=== PATIENT | male | born 1930 | race Caucasian/White ===

== ENCOUNTER 2016-10-13 19:32 | Inpatient (IN) ==
[2016-10-13] MEDS ORDERED: Naloxone 0.4 MG/ML INJ IVP PRN (22:26)
[2016-10-13] MEDS: *HR* HYDROmorphone (PF) 1 MG/ML SYRINGE IVP PRN (22:44)
--- NOTE | 2016-10-13 22:50 | Internal Med History&Physical ---
Date of Encounter: 10/13/16 Time of Encounter: 22:44 Assessment and Plan (1) Closed left hip fracture Current visit: Yes Status: Acute Patient fell at home and reported left hip pain. Xray revealed minimally displaced left femoral intertrochanteric fracture. Orthopedic surgery (Dr. Gregory) was consulted, plan for surgery tomorrow. EKG for pre-op clearance NPO after midnight [place] and IV dilaudid PRN for pain control narcan prn for respiratory depression. Qualifiers: Encounter type: initial encounter Qualified Code(s): S72.002A - Fracture of unspecified part of neck of left femur, initial encounter for closed fracture (2) Hypertension Current visit: Yes Status: Acute Patient takes clonidine, furosemide, losartan, amlodipine at home. Hold oral medications as patient is NPO for surgery. Hydralazine 10mg q6hr prn for SBP > 180 or DBP >100. Restart home meds after surgery. Qualifiers: Hypertension type: essential hypertension Qualified Code(s): I10 - Essential (primary) hypertension (3) CAD (coronary artery disease) Current visit: Yes Status: Acute Patient had cardiac cath in 2013 which showed minimal atherosclerotic disease with 30% lesion in the LAD, 20% lesion in the Circ, 20% RCA and EF of 60%. Will get EKG for pre-op clearance. Qualifiers: Coronary Disease-Associated Artery/Lesion type: [place] artery [place] vs. transplanted heart: [place] heart Associated angina: without angina Qualified Code(s): I25.10 - Atherosclerotic heart disease of [place] coronary artery without angina pectoris (4) Type 2 diabetes mellitus Current visit: Yes Status: Acute Patient with type 2 diabetes, not on any medications at home. Check blood sugars Q6hrs while NPO Sliding scale correction dose Q6hrs while NPO hypoglycemic protocol. Qualifiers: Diabetes mellitus complication status: without complication Diabetes mellitus alf insulin use: without alf use Qualified Code(s): E11.9 - Type 2 diabetes mellitus without complications (5) DVT prophylaxis Current visit: Yes Status: Acute Calf sequential compression devices. start pharmacologic prophylaxis after surgery tomorrow. Internal Medicine - H&P: HPI Chief complaint: hip pain Admitted From: Emergency Dept Plans for Post Hospital Care: Transfer [facility] Facility History of present illness: Mr. Johnson is a 86 year old male with hypertension, type 2 diabetes, hyperlipidemia, remote history of throat cancer s/p radiation, recent pelvic fracture who was transferred from [facility] after suffering a fall at home. He reports he was using his walker and walking around his car when the walker got caught on something and he lost his balance and fell, landing on his left hip. He denies hitting his head or losing consciousness. Evaluation in the [facility] ED included an xray of the left hip which showed a minimally displaced left femoral intertrochanteric fracture. On exam, patient is alert and oriented, in no distress. Heart has regular rate and rhythm and lungs are clear to auscultation bilaterally. Left hip is tender to palpations and patient reports pain with any movement or manipulation. Peripheral pulses are intact, and he has normal capillary refill and sensation. Past Med Surg Social Fam HX - Past Medical History Medical history: cancer (remote throat cancer s/p radiation), coronary artery disease, diabetes, glaucoma, hyperlipidemia, hypertension - Past Surgical History Surgical History: hip replacement (right) - Social History Smoking Status: Never smoker Smokeless Tobacco Status: No Alcohol use: none Drug use: none - Family History Father History Unknown: Yes Adopted: [place]: Flavio Johnson Family Member Ethnicity: Non- Living Status: Age at : 79 Cause of : Cancer Hx Family Respiratory Disorders: Yes Hx Family Cancer: Yes (prostate cancer) Hx Family GI Disorders: No Hx Family Genitourinary Disorders: No Hx Family Endocrine Disorder: No Hx Family Musculoskeletal Disorders: No Hx Family Neuromuscular Disorders: No Hx Family Neurologic Disorders: No Hx Family HEENT Disorders: No Hx Family Autoimmune Disorders: No Hx Family Reproductive Disorders: No Hx Family Psychosocial Disorders: No Hx Family Medical Disorders: No Mother Living Status: Age at : 75 Cause of : CHF Hx Family Cardiac Disorders: Yes Brother Living Status: Hx Family Cancer: Yes Sister Living Status: Hx Family Cancer: Yes Internal Medicine - H&P: Meds Allergies Penicillins Allergy (Verified 10/13/16 22:31) Itching pregabalin [From Lyrica] Allergy (Verified 10/13/16 22:31) Swelling of Lip/Tongue/Throat All Systems PM: A 10-system review of systems was performed and is negative for pertinent findings except as documented above in the HPI. - Constitutional Constitutional: no chills, no fever(s), no night sweats - EENT Eyes: no change in vision, no discharge, no pain, no photophobia Ears: no ear discharge, no ear pain, no tinnitus Nose, mouth and throat: no dysphagia, no nasal discharge, no neck pain, no sore throat - Cardiovascular Cardiovascular ROS IM: no chest pain, no diaphoresis, no dyspnea, no lightheadedness, no palpitations, no syncope - Respiratory Respiratory: no cough, no dyspnea, no wheezing, no excessive phlegm production - Gastrointestinal Gastrointestinal: no abdominal pain, no diarrhea, no hematemesis, no hematochezia, no melena, no nausea, no vomiting - Musculoskeletal Musculoskeletal ROS IM: arthralgias (left hip pain), back pain, joint swelling ( left hip), limited range of motion (left hip), no numbness, no tingling - Integumentary Integumentary IM: no rash, no unusual bruising - Neurological Neurological ROS: no confusion, no convulsions, no focal weakness, no numbness, no tingling, no tremor(s) - Hematologic/Lymphatic Hematologic/Lymphatic: no easy bruising - Constitutional Vitals: Temp Pulse Resp BP Pulse Ox 97.8 F 95 18 173/86 98 10/13/16 21:32 10/13/16 21:32 10/13/16 21:32 10/13/16 21:32 10/13/16 21:32 General appearance: Present: A&O X 3, pleasant, no acute distress - Head Head exam: Present: atraumatic, normocephalic - Eye Eye exam: Present: PERRL, conjuntiva pink, sclera anicteric Pupils: Present: PERRL - Neck Neck exam general surgery: Present: supple, trachea midline. Absent: lymphadenopathy - Respiratory Respiratory exam: Present: CTAB. Absent: accessory muscle use, rales, rhonchi, wheezes - Cardiovascular Cardiovascular exam: Present: RRR, +S1, +S2. Absent: diastolic murmur, gallop, rubs, systolic murmur - GI/Abdominal GI/Abdominal exam: Present: normal bowel sounds, soft, no peritoneal signs. Absent: distended, tenderness - Extremities Exam Extremities exam: Present: pedal edema (left ), tenderness (left hip), warm, radial pulses palpable and symetrical. Absent: calf tenderness, cyanotic - Neurological Exam Neurological exam: Present: CN II-XII intact, oriented X3, no focal deficits. Absent: facial droop, speech deficit - Skin Skin exam: Present: dry, intact Internal Med - H&P Results - Diagnostic Studies Other Images Additional comments: Left hip xray from [facility]: Minimally displaced left femoral intertrochanteric fracture. Osteopenia.
[2016-10-13] MEDS ORDERED: *HR* Dextrose 50 % in Water (Syg) 50 ML SYRINGE IVP PRN (22:52)
[2016-10-13] MEDS ORDERED: D5% in Water 1,000 ML IVC PRN (22:52)
[2016-10-13] MEDS ORDERED: Dextrose Gel 15 GM PO PRN ×2 (22:52)
[2016-10-13] MEDS: 0.9 % Sodium Chloride 1,000 ML IVC SCH (23:05)
[2016-10-14] MEDS: Insulin LISPRO 300 UNITS/3 ML VIAL SQ SCH ×4 (01:18→19:16)
[2016-10-14] MEDS: *HR* HYDROmorphone (PF) 1 MG/ML SYRINGE IVP PRN ×6 (03:07→19:04)
[2016-10-14 06:01] LABS: Basophils % 0.3 %; Eosinophils % 0.5 %; Hematocrit 38.3 % (37.5-50.1); Hemoglobin 12.7 g/dL (12.9-16.9); Immature Granulocytes % 0.5 % (0-4); Lymphocytes # 1.6 K/mcL (0.6-4.6); Lymphocytes % 21.2 %; Mean Corpuscular HGB Conc 33.2 g/dL (31.6-35.5); Mean Corpuscular Volume 87.4 fL (83.0-100.0); Monocytes # 0.7 K/mcL (0.0-1.3); Monocytes % 9.5 %; Neutrophils # 5.1 K/mcL (1.6-8.9); Platelet Count 165 K/mcL (140-400); Red Blood Count 4.38 M/mcL (4.19-5.50); Red Cell Distribution Width 13.2 % (11.5-14.5)
[2016-10-14 06:12] LABS: BUN/Creatinine Ratio 18 (6-26); Blood Urea Nitrogen 18 mg/dL (8-26); Calcium 8.5 mg/dL (8.6-10.8); Carbon Dioxide 27 mEq/L (19-29); Chloride 107 mEq/L (98-109); Glucose 145 mg/dL (70-99); Osmolality,Calculated 292 (280-300); Potassium 4.9 mEq/L (3.5-4.5); Sodium 139 mEq/L (136-145); eGFR For African Americans > 60 (> 60); eGFR For Non-African Americans > 60 (> 60)
[2016-10-14] MEDS: *HR* HYDROcodone/Acet 5/325 mg TABLET PO PRN (10:29)
[2016-10-14] MEDS: 0.9 % Sodium Chloride 1,000 ML IVC SCH (12:36)
--- NOTE | 2016-10-14 14:17 | Internal Med Progress Note ---
Date of Encounter: 10/14/16 Time of Encounter: 14:15 - Assessment and plan (1) Closed left hip fracture Current Visit: Yes Status: Acute Assessment and plan: Status post mechanical fall. Orthopedic surgery consult appreciated, plan for intramedullary nailing today. Pain control with when necessary IV morphine. Keep nothing by mouth for surgery. EKG shows normal sinus rhythm with Q waves in inferior leads, possibly old ID. Patient is cleared for surgery with mild to moderate perioperative risk. Physical therapy evaluation after surgery. Qualifiers: Encounter type: initial encounter Qualified Code(s): S72.002A - Fracture of unspecified part of neck of left femur, initial encounter for closed fracture (2) Hypertension Current Visit: Yes Status: Chronic Assessment and plan: Blood pressure noted to be slightly elevated, likely due to underlying pain. Patient did not receive oral antihypertensives due to being nothing by mouth. Will use when necessary IV hydralazine and labetalol for blood pressure control. Qualifiers: Hypertension type: essential hypertension Qualified Code(s): I10 - Essential (primary) hypertension (3) CAD (coronary artery disease) Current Visit: Yes Status: Chronic Qualifiers: Coronary Disease-Associated Artery/Lesion type: [place] artery [place] vs. transplanted heart: [place] heart Associated angina: without angina Qualified Code(s): I25.10 - Atherosclerotic heart disease of [place] coronary artery without angina pectoris (4) Type 2 diabetes mellitus Current Visit: Yes Status: Chronic Assessment and plan: Borderline diabetic per family. Check hemoglobin A1c. Continue Accu-Chek blood glucose monitoring with low-dose sliding scale insulin as needed. Qualifiers: Diabetes mellitus complication status: without complication Diabetes mellitus equipment operator intermodal yard insulin use: without equipment operator intermodal yard use Qualified Code(s): E11.9 - Type 2 diabetes mellitus without complications - Subjective Interval history: Reports left hip focal pain, restricted range of motion; upset about not having hip surgery yet; - Constitutional Vitals: Temp Pulse Resp BP Pulse Ox 97.9 F 82 16 192/83 97 10/14/16 12:06 10/14/16 12:06 10/14/16 12:06 10/14/16 12:06 10/14/16 12:06 General appearance: Present: mild distress, A&O X 3, answers questions appropriately - ENT Additional comments: very hard of hearing - Respiratory Respiratory exam: Present: CTAB. Absent: accessory muscle use, rales, rhonchi, wheezes - Cardiovascular Cardiovascular exam: Present: RRR, +S1, +S2. Absent: diastolic murmur, gallop, rubs, systolic murmur - GI/Abdominal GI/Abdominal exam: Present: normal bowel sounds, soft, no peritoneal signs. Absent: distended, tenderness - Extremities Exam Extremities exam: Present: full ROM (left hip restricted ROM, in external rotation and abduction), pedal edema (2+ pitting pedal edema B/L), warm, radial pulses palpable and symetrical. Absent: calf tenderness, cyanotic Internal Medicine: Result - Labs CBC & Chem 7: 10/14/16 05:46 10/14/16 05:46 Labs: Short CBC 10/14/16 Range/Units 05:46 WBC 7.5 (4.3-11.1) K/mcL Hgb 12.7 L (12.9-16.9) g/dL Hct 38.3 (37.5-50.1) % Plt Count 165 (140-400) K/mcL Neutrophils # 5.1 (1.6-8.9) K/mcL BMP 10/14/16 05:46 Sodium 139 Potassium 4.9 H Chloride 107 Carbon Dioxide 27 BUN 18 Creatinine 1.02 Glucose 145 H Calcium 8.5 L Consult Discharge Plan - Plan Referrals: Zbigniew Ramirez MD [Primary Care Provider] -
[2016-10-14 15:39] LABS: Hemoglobin A1C 7.1 %
--- NOTE | 2016-10-14 15:42 | Orthopedic Consult Note ---
Date of Encounter: 10/14/16 Time of Encounter: 15:39 Assessment and Plan (1) Closed intertrochanteric fracture of left hip Current Visit: Yes Status: Acute Left hip nondisplaced intertrochanteric fracture Plan: The patient was seen and evaluated today. He is being planned by the medical service. He is scheduled for a left hip intramedullary nailing today. The risks, benefits and alternatives were discussed the patient and his . The patient is aware of the fact that he will require rehabilitation services afterwards. Qualifiers: Encounter type: initial encounter Qualified Code(s): S72.142A - Displaced intertrochanteric fracture of left femur, initial encounter for closed fracture History of Present Illness Chief complaint: Left hip pain HPI: Mr. Johnson is a 86 year old male status post a fall last night. Patient was seen at [facility]'s ER where he was diagnosed with a left fracture. The patient requested transfer to [place] for surgical management. Patient's form patient mine I fixed his right hip several years ago. He also had a recent pubic rami fracture. He normally uses a motorized scooter and a walker however has screw better stead. He was outside with his walker and was on an even surface, lost his balance and fell down onto his left side. The patient denies dizziness prior to fall and no loss of consciousness after the fall. He reports no shortness of breath and no chest pain. Past Med Surg Social Fam HX - Past Medical History Medical history: cancer (remote throat cancer s/p radiation), coronary artery disease, diabetes, glaucoma, hyperlipidemia, hypertension - Past Surgical History Surgical History: hip replacement (right hip pinning) - Social History Smoking Status: Never smoker Smokeless Tobacco Status: No Alcohol use: none Drug use: none - Family History Father History Unknown: Yes Adopted: [place]: Flavio Johnson Family Member Ethnicity: Non- Living Status: Age at : 79 Cause of : Cancer Hx Family Respiratory Disorders: Yes Hx Family Cancer: Yes (prostate cancer) Hx Family GI Disorders: No Hx Family Genitourinary Disorders: No Hx Family Endocrine Disorder: No Hx Family Musculoskeletal Disorders: No Hx Family Neuromuscular Disorders: No Hx Family Neurologic Disorders: No Hx Family HEENT Disorders: No Hx Family Autoimmune Disorders: No Hx Family Reproductive Disorders: No Hx Family Psychosocial Disorders: No Hx Family Medical Disorders: No Mother Living Status: Age at : 75 Cause of : CHF Hx Family Cardiac Disorders: Yes Brother Living Status: Hx Family Cancer: Yes Sister Living Status: Hx Family Cancer: Yes Medications and Allergies Alendronate Sodium [Fosamax] 70 mg PO TH 10/14/16 [History] Amlodipine [Norvasc] 5 mg PO HS 10/14/16 [History] Aspirin 81 mg PO DAILY 10/14/16 [History] Atorvastatin [Lipitor] 10 mg PO HS 10/14/16 [History] Cinnamon Bark [Cinnamon] 1,000 mg PO DAILY 10/14/16 [History] CloNIDine HCl 0.1 mg PO BID 10/14/16 [History] Docusate Sodium [Dok] 250 mg PO DAILY PRN 10/14/16 [History] Finasteride [Proscar] 5 mg PO HS 10/14/16 [History] Furosemide [Lasix] 40 mg PO DAILY 10/14/16 [History] Mv-Mn/FA/Vit K/Lycop/Lut/Coq10 [Daily Multivitamin Capsule] 1 each PO DAILY 08/01 [History] Polyethylene Glycol 3350 [MiraLAX bowel prep] 17 gm PO DAILY 10/14/16 [History] Ranitidine HCl [Zantac 75] 75 mg PO QAM 10/14/16 [History] Sertraline [Zoloft] 12.5 mg PO HS 10/14/16 [History] Tramadol HCl [Ultram] 50 mg PO BID PRN 10/14/16 [History] Allergies Penicillins Allergy (Verified 10/14/16 09:47) Itching pregabalin [From Lyrica] Allergy (Verified 10/14/16 09:47) Swelling of Lip/Tongue/Throat All Systems Reviewed: A 10-system review of systems was performed and is negative for pertinent findings except as documented above in the HPI. - Constitutional Constitutional: frequent falls Physical Exam - Constitutional Vitals: Temp Pulse Resp BP Pulse Ox 98.1 F 77 16 168/71 97 10/14/16 14:40 10/14/16 14:40 10/14/16 14:40 10/14/16 14:40 10/14/16 14:40 General appearance IM: A&O X 3, no acute distress, answers questions appropriately Exam: Head normocephalic atraumatic Neck is supple and nontender Bilateral upper extremities: No ecchymosis, no point tenderness, normal range of motion without crepitus Right hip no tenderness, good motion of knee and ankle, neurovascular intact Left lower extremity: Shortened and externally rotated, positive groin tenderness, dorsalis pedis pulse 2+, normal sensation on dorsum and plantar aspect of foot; patient moves his toes well Results - Labs Result Diagrams: 10/14/16 05:46 10/14/16 05:46 Labs: Abnormal lab results Hgb 12.7 g/dL (12.9-16.9) L 10/14/16 05:46 Potassium 4.9 mEq/L (3.5-4.5) H 10/14/16 05:46 Glucose 145 mg/dL (70-99) H 10/14/16 05:46 Calcium 8.5 mg/dL (8.6-10.8) L 10/14/16 05:46 H & H 10/14/16 Range/Units 05:46 Hgb 12.7 L (12.9-16.9) g/dL Hct 38.3 (37.5-50.1) % All other labs normal. - Diagnostic results Hip x-ray: image reviewed (Left hip nondisplaced intertrochanteric, right hip screws in place) Consult Discharge Plan - Plan Referrals: Zbigniew Ramirez MD [Primary Care Provider] -
--- NOTE | 2016-10-14 15:51 | Anesthesia Evaluation PreOp ---
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 HX Other Medical History: Diabetes Type II, Other (H/O throat CA S/P XRT) Anesthesia History: No Prior Anesthetic Complications, Past Anesthesia Alcohol Use: none Drug use: none Medications and Allergies Alendronate Sodium [Fosamax] 70 mg PO TH 10/14/16 [History] Amlodipine [Norvasc] 5 mg PO HS 10/14/16 [History] Aspirin 81 mg PO DAILY 10/14/16 [History] Atorvastatin [Lipitor] 10 mg PO HS 10/14/16 [History] Cinnamon Bark [Cinnamon] 1,000 mg PO DAILY 10/14/16 [History] CloNIDine HCl 0.1 mg PO BID 10/14/16 [History] Docusate Sodium [Dok] 250 mg PO DAILY PRN 10/14/16 [History] Finasteride [Proscar] 5 mg PO HS 10/14/16 [History] Furosemide [Lasix] 40 mg PO DAILY 10/14/16 [History] Mv-Mn/FA/Vit K/Lycop/Lut/Coq10 [Daily Multivitamin Capsule] 1 each PO DAILY 08/01 [History] Polyethylene Glycol 3350 [MiraLAX bowel prep] 17 gm PO DAILY 10/14/16 [History] Ranitidine HCl [Zantac 75] 75 mg PO QAM 10/14/16 [History] Sertraline [Zoloft] 12.5 mg PO HS 10/14/16 [History] Tramadol HCl [Ultram] 50 mg PO BID PRN 10/14/16 [History] Allergies Penicillins Allergy (Verified 10/14/16 09:47) Itching pregabalin [From Lyrica] Allergy (Verified 10/14/16 09:47) Swelling of Lip/Tongue/Throat - Meds/Allergy Pre-op Review Medications Reviewed: Yes Allergies Reviewed: Yes Beta Blockers on Current Med List: No Anesthesia Results - Labs 10/14/16 05:46 10/14/16 05:46 Laboratory Tests 02/27/14 17:48 PT 11.8 INR 1.1 PTT 27.1 - Imaging EKG: report reviewed (10/14/2016 SR, 1st degree AV block, inferior infarct) Additional studies: 01/25/2014 Echo Impressions: LVEF 60%. Normal left ventricular size, thickness and systolic function. There is evidence of mild diastolic dysfunction of the left ventricle. Moderately enlarged left atrial size. Normal right atrial size. Normal right ventricular size and function. No significant valvular dysfunction. IVC not well visualized for assessment of pulmonary hypertension. TR gradient 21 mmHg. 01/25/2014 Cath Impressions: Minimal atherosclerotic coronary artery disease. The left ventricle is normal and has normal contractility EF 60% Anesthesia Exam Vital Signs/O2 Sat/Glucose, Most Recent Temp Pulse Resp BP Pulse Ox 98.1 F 77 16 168/71 97 10/14/16 14:40 10/14/16 14:40 10/14/16 14:40 10/14/16 14:40 10/14/16 14:40 Blood Glucose* 121 Height: 5'8''/1.73 m Weight: 212 lbs/96.5 kg NPO (# of Hours): 8 Pain Scale: 4 Pain Scale Used: Numeric (1 - 10) - HEENT Pupil (Motor): EOMI Mallampati: III Teeth: Edentulous Oral Opening: Greater than 3 - MAGNETIC TAPE COMPOSER OPERATOR LOC: Oriented MAGNETIC TAPE COMPOSER OPERATOR Motor: Normal RUE, Normal LUE, Normal RLE, Normal Face, Deficit LLE MAGNETIC TAPE COMPOSER OPERATOR Sensory: Normal: RUE, LUE, Face, Deficit: RLE, LLE - Cardiac Rhythm: Regular Murmur: None - Pulmonary Breath Sounds: bilateral Rhonchi Respiratory Effort: Symmetrical Anesthesia Assess/Plan ASA Score: 3 Modified [place] Scale for Level of Consciousness: Cooperative, oriented, and tranquil Anesthetic Plan: General Monitoring Plan: Standard Monitors Recovery Plan: PACU
--- NOTE | 2016-10-14 15:52 | Electrocardiograph Report ---
[place] [id number] Test Date: 2016-10-14 Pat Name: Carlos Johnson Department: 114 Room: [facility] Gender: M Pediatric Physical Therapy Assistant: CPB : 1930 Requested By: Flora Leslie Order Number: [id number] Reading MD: Eduardo Zarco Measurements Intervals [place] Rate: 74 P: 49 [place]: 211 QRS: 11 QRSD: 109 T: 34 QT: 395 QTc: 422 Interpretive Statements SINUS RHYTHM WITH FIRST DEGREE AV BLOCK INFERIOR MYOCARDIAL INFARCTION, PROBABLY OLD Electronically Signed On 10-14-2016 15:51:09 EDT by Eduardo Zarco
[2016-10-14] MEDS ORDERED: Ondansetron 4 MG/2 ML VIAL IVP PRN ×2 (16:19→19:39)
[2016-10-14] MEDS ORDERED: Clindamycin 900 MG/50 ML 900 MG/50 ML IV.SOLN IVPB ONE (16:40)
[2016-10-14] MEDS ORDERED: *HR* FentaNYL (PF) 100 MCG/2 ML VIAL ONE (16:41)
[2016-10-14] MEDS ORDERED: *HR* Propofol 200 MG/20 ML VIAL IVP ONE (16:41)
[2016-10-14] MEDS ORDERED: Ondansetron 4 MG/2 ML VIAL ONE (16:41)
[2016-10-14] MEDS ORDERED: Lidocaine -MPF 2% 2 ML VIAL ONE (16:41)
[2016-10-14] MEDS ORDERED: Dexamethasone 4 MG/ML VIAL ONE (16:41)
[2016-10-14] MEDS ORDERED: *HR* HYDROmorphone 2 MG/ML SYRINGE ONE (17:24)
[2016-10-14] MEDS: *HR* Labetalol 100 MG/20 ML MDV IVP PRN ×2 (18:24→18:34)
--- NOTE | 2016-10-14 19:13 | Anesthesia Evaluation Post Op ---
Date of Encounter: 10/14/16 Time of Encounter: 19:12 - Vital Signs Vital Signs: Vital Signs/O2 Sat, Most Current Temp Pulse Resp BP Pulse Ox 99.3 F 75 16 145/84 93 10/14/16 18:44 10/14/16 18:54 10/14/16 18:54 10/14/16 18:54 10/14/16 18:54 - Lungs Lungs: Clear Ascult./Percussion - Airway Airway: Non-obstructed - Cardiovascular Regular Rate - Mental Status Mental Status: Alert & Oriented, Answers Appropriately - Pain Pain Scale: 0 Pain Scale used: Numeric (1 - 10) - Nausea Vomiting Nausea Vomiting: Not Present - Hydration Hydration: NPO, Has not voided - Discharge PostOp Status: Transfer Patient to floor
[2016-10-14] MEDS ORDERED: DOCUSATE SODIUM 250 MG PO PRN (20:00)
[2016-10-14] MEDS: Finasteride 5 MG TABLET PO SCH (22:14)
[2016-10-14] MEDS: cloNIDine HCl 0.1 MG TABLET PO SCH (22:14)
[2016-10-14] MEDS: amLODIPine 5 MG TABLET PO SCH (22:14)
[2016-10-15] MEDS: Insulin LISPRO 300 UNITS/3 ML VIAL SQ SCH ×4 (00:55→16:57)
[2016-10-15] MEDS: Clindamycin 900 MG/50 ML 900 MG/50 ML IV.SOLN IVPB SCH ×2 (04:07→11:53)
[2016-10-15] MEDS: *HR* HYDROcodone/Acet 5/325 mg TABLET PO PRN ×2 (04:07→21:52)
[2016-10-15 05:25] LABS: Basophils % 0.1 %; Hematocrit 35.4 % (37.5-50.1); Hemoglobin 11.5 g/dL (12.9-16.9); Immature Granulocytes % 0.4 % (0-4); Lymphocytes # 0.9 K/mcL (0.6-4.6); Lymphocytes % 7.9 %; Mean Corpuscular HGB Conc 32.5 g/dL (31.6-35.5); Mean Corpuscular Hemoglobin 29.3 pg (28.0-33.3); Mean Corpuscular Volume 90.1 fL (83.0-100.0); Mean Platelet Volume 10.6 fL (9.4-12.4); Monocytes # 0.7 K/mcL (0.0-1.3); Monocytes % 6.1 %; Neutrophils # 9.7 K/mcL (1.6-8.9); Platelet Count 153 K/mcL (140-400); Red Blood Count 3.93 M/mcL (4.19-5.50); Red Cell Distribution Width 13.2 % (11.5-14.5); Segmented Neutrophils % 85.5 %
[2016-10-15 05:44] LABS: BUN/Creatinine Ratio 21 (6-26); Blood Urea Nitrogen 24 mg/dL (8-26); Calcium 8.3 mg/dL (8.6-10.8); Carbon Dioxide 27 mEq/L (19-29); Chloride 104 mEq/L (98-109); Glucose 192 mg/dL (70-99); Osmolality,Calculated 293 (280-300); Potassium 4.8 mEq/L (3.5-4.5); Sodium 137 mEq/L (136-145); eGFR For African Americans > 60 (> 60); eGFR For Non-African Americans > 60 (> 60)
[2016-10-15] MEDS: *HR* Enoxaparin 30 MG/0.3 ML SYRINGE SQ SCH ×2 (06:07→16:56)
[2016-10-15 06:30] LABS: Platelet Estimate Normal (Normal)
[2016-10-15] MEDS: Famotidine 20 MG TABLET PO SCH (08:42)
[2016-10-15] MEDS: Furosemide 40 MG TABLET PO SCH (08:43)
[2016-10-15] MEDS: Aspirin 81 MG TAB.CHEW PO SCH (08:43)
[2016-10-15] MEDS: cloNIDine HCl 0.1 MG TABLET PO SCH ×2 (08:43→21:44)
[2016-10-15] MEDS: Multivit/Ca/Min/Fe/FA 1 TAB TABLET PO SCH (08:43)
--- NOTE | 2016-10-15 09:13 | Operative Note ---
Date of procedure: 10/14/16 Pre-op diagnosis: Left hip nondisplaced intertrochanteric fracture Post-op diagnosis: same Procedure: Left hip intramedullary nailing Implants: [place] gamma nail Anesthesia: MADINA Surgeon: Nic Hare Estimated blood loss (cc): 200 Condition: stable Disposition: PACU Procedure in Detail: The patient received IV antibiotics in the holding area. He was brought to the operating room, sign in was performed. The patient underwent general anesthesia on the hospital bed. He was then transferred to the fracture table in supine position. The patient was positioned with the support groin post, the affected left lower extremity in the traction beaver and the contralateral lower extremity in a well-padded limb beaver with a hip flexed and abducted out of the way. Fluoroscopy was then brought in, the fractures visualized, and the fracture reduced. We checked on AP and true lateral view of the hip. Once satisfactory the left hip, from the pelvis down to the knee, was prepped and draped in usual sterile fashion. A timeout was performed. The level of the greater trochanter was palpated, a 4-5 cm oblique incision was made just proximally, , followed by Bovie dissection. The hip abductor was sharply split in line with its fibers with a curved Rodriguez scissors. The tip of the greater trochanter was palpable. A curved awl was then positioned on the tip. Its position was checked on fluoroscopy, slightly advanced, and we checked the lateral view. Once appropriately positioned, the aggressive awl was then used to open the proximal femur down to level of the lesser trochanter. A short gamma nail with 125 degree neck angle, 11 mm diameter, was assembled, and appropriately inserted into the proximal femur. The appropriate level was checked under fluoroscopy. The trochars were placed in the jig at 125 degree neck angle was then positioned against the skin, and the radiolucent guide was used to assist in positioning. Once satisfactory a 2.5 cm incision was made, the fascia was bluntly split along with the muscle fibers of the vastus lateralis. The triple trocar was advanced up against the lateral cortex. The guidepin was then driven up into the femoral head, checking AP and lateral views. A 115 mm length lag screw was chosen. Overdrilled the guidewire, and the lag screw was inserted over the guidewire. Once close to the edge of the femoral head, the T-handled was held parallel to the nail. The setscrew was then positioned but not fully tightened. The fracture is nondisplaced, compression was not necessary. The setscrew was fully tightened at the top, and then backed off a quarter turn to allow the lag screw to slide if needed. The triple trochars for the distal static locking screw were placed in the jig, a 1 cm longitudinal incision was made. The trochars were advanced to the cortex , and drilled across. The depth was measured and a 40 mm by 5 mm bicortical screw was placed. All trochars and jig were removed. Final fluoroscopy shots were taken and saved showing good AP and lateral views of the hip and also distally at the tip of the nail. The wounds were irrigated with normal saline. Fascia over the abductors was closed with 1 Vicryl [id number]-[id number] stitches, including the deep subcutaneous fat layer. Subcutaneous tissues were closed with 2-0 Vicryl, and the skin incisions were closed with josh. Sterile dressings were applied. The patient was transferred to hospital bed where she was extubated and taken to recovery room in stable condition.
[2016-10-15] MEDS ORDERED: Naloxone 0.4 MG/ML INJ IVP PRN (09:16)
--- NOTE | 2016-10-15 14:22 | Internal Med Progress Note ---
Date of Encounter: 10/15/16 Time of Encounter: 14:21 - Assessment and plan (1) Closed left hip fracture Current Visit: Yes Status: Acute Assessment and plan: Left hip fracture secondary to mechanical fall. Orthopedic surgery consulted, patient underwent left hip intramedullary nailing, postoperative day 1. Doing well. Local wound and postoperative care according to orthopedics. Continue pain control with when necessary oral Percocet and IV morphine. DVT prophylaxis with Lovenox. Physical therapy evaluation. Supportive care. Qualifiers: Encounter type: initial encounter Qualified Code(s): S72.002A - Fracture of unspecified part of neck of left femur, initial encounter for closed fracture (2) Hypertension Current Visit: Yes Status: Chronic Assessment and plan: Blood pressure noted to be better controlled. Continue home medications. Qualifiers: Hypertension type: essential hypertension Qualified Code(s): I10 - Essential (primary) hypertension (3) CAD (coronary artery disease) Current Visit: Yes Status: Chronic Qualifiers: Coronary Disease-Associated Artery/Lesion type: [place] artery [place] vs. transplanted heart: [place] heart Associated angina: without angina Qualified Code(s): I25.10 - Atherosclerotic heart disease of [place] coronary artery without angina pectoris (4) Type 2 diabetes mellitus Current Visit: Yes Status: Chronic Assessment and plan: Hemoglobin A1c noted to be 7.1%. Treatment naive. Continue Accu-Chek blood glucose monitoring with sliding scale insulin as needed. Diabetic diet. Qualifiers: Diabetes mellitus complication status: without complication Diabetes mellitus long-term insulin use: without long-term use Qualified Code(s): E11.9 - Type 2 diabetes mellitus without complications - Subjective Interval history: Reports left hip pain, worse when he bears weight or moves; no nausea, vomiting , shortness of breath; has been refusing to participate with PT since morning, mostly due to miscommunication due to difficulty hearing; - Constitutional Vitals: Temp Pulse Resp BP Pulse Ox 98.1 F 71 16 115/68 100 10/15/16 10:34 10/15/16 10:34 10/15/16 10:34 10/15/16 10:34 10/15/16 10:34 General appearance: Present: A&O X 3, answers questions appropriately - Respiratory Respiratory exam: Present: CTAB. Absent: accessory muscle use, rales, rhonchi, wheezes - Cardiovascular Cardiovascular exam: Present: RRR, +S1, +S2. Absent: diastolic murmur, gallop, rubs, systolic murmur - Extremities Exam Extremities exam: Present: warm, radial pulses palpable and symetrical. Absent : calf tenderness, cyanotic, pedal edema Additional comments: left proximal lateral thigh/hip with intact surgical dressing, dry; surrounding induration and edema+ Internal Medicine: Result - Labs CBC & Chem 7: 10/15/16 04:42 10/15/16 04:42 Labs: Short CBC 10/15/16 Range/Units 04:42 WBC 11.3 H D (4.3-11.1) K/mcL Hgb 11.5 L (12.9-16.9) g/dL Hct 35.4 L (37.5-50.1) % Plt Count 153 (140-400) K/mcL Neutrophils # 9.7 H (1.6-8.9) K/mcL BMP 10/15/16 04:42 Sodium 137 Potassium 4.8 H Chloride 104 Carbon Dioxide 27 BUN 24 Creatinine 1.13 Glucose 192 H Calcium 8.3 L - VTE Documentation of Mechanical Device: Venous foot pump, device Consult Discharge Plan - Plan Referrals: Anum Roland CNP [Partnered Physician] - 11/12/16 1:00 pm Elier Wan MD [Partnered Physician] - 10/16/16 9:30 am Tracy Castillo CNP [Advanced Practice Nurse] - 01/28/17 10:30 am Zbigniew Ramirez MD [Primary Care Provider] -
--- NOTE | 2016-10-15 16:55 | Orthopedics Progress Note ---
Date of Encounter: 10/15/16 Time of Encounter: 12:20 - Assessment and Plan (1) Closed left hip fracture Current Visit: Yes Status: Acute POD#1 s/p Left hip IM nailing Dressings to be changed tomorrow Continue with therapy. WBAT. Continue pain control and DVT prophylaxis per hospitalist. Will follow up in [facility] office with Isabelle Goldstein PA-C at [phone]. Office will fax appt card to floor. Qualifiers: Encounter type: initial encounter Qualified Code(s): S72.002A - Fracture of unspecified part of neck of left femur, initial encounter for closed fracture Subjective Principal diagnosis: POD#1 s/p left hip IM nailing Interval history: Patient doing well with no concerns or events overnight. No complaint of pain at this time. Objective Vital signs: Vital Signs Temp Pulse Resp BP Pulse Ox 10/15/16 15:57 98.3 F 84 18 146/74 96 10/15/16 14:55 71 16 115/68 100 10/15/16 10:34 98.1 F 71 16 115/68 100 10/15/16 06:23 97.6 F 78 16 149/71 95 10/15/16 03:47 97.9 F 74 16 149/71 97 10/15/16 00:17 97.8 F 80 16 135/70 94 10/14/16 22:23 98.2 F 83 14 147/79 96 10/14/16 21:13 98.9 F 77 16 152/79 95 10/14/16 20:15 98.3 F 79 16 158/77 95 10/14/16 19:55 93 10/14/16 19:46 97.9 F 77 16 144/71 93 10/14/16 19:45 97.8 F 78 16 145/74 93 10/14/16 19:14 99.1 F 75 16 150/69 96 10/14/16 19:04 74 16 121/68 96 10/14/16 18:54 75 16 145/84 93 10/14/16 18:44 99.3 F 76 20 164/85 94 10/14/16 18:34 79 20 200/97 94 10/14/16 18:24 78 20 207/116 94 10/14/16 18:14 99 F 89 20 226/101 97 Intake and Output 10/15/16 10/15/16 10/15/16 07:59 15:59 23:59 Intake Total 150 / 150 50 / 50 Output Total 270 / 270 100 / 100 Balance -120 / -120 -50 / -50 Intake: IV Fluids 50 / 50 Cleocin 900 MG/50 ML 900 50 / 50 mg In 50 ml @ 50 mls/hr IVPB Q[facility] Rx#: [id number] Oral 150 / 150 Output: Urine 270 / 270 100 / 100 Other: Blood Glucose* 137 204 Incision: clean and dry (Incisions c/d/i with no visible drainage or surrounding erythema, no tenderness to palpation around incision or calf. Good dorsiflexion of foot. NV intact.) - Labs CBC & BMP: 10/15/16 04:42 10/15/16 04:42 Labs: Abnormal lab results WBC 11.3 K/mcL (4.3-11.1) H D 10/15/16 04:42 RBC 3.93 M/mcL (4.19-5.50) L 10/15/16 04:42 Hgb 11.5 g/dL (12.9-16.9) L 10/15/16 04:42 Hct 35.4 % (37.5-50.1) L 10/15/16 04:42 Neutrophils # 9.7 K/mcL (1.6-8.9) H 10/15/16 04:42 Potassium 4.8 mEq/L (3.5-4.5) H 10/15/16 04:42 Glucose 192 mg/dL (70-99) H 10/15/16 04:42 POC Glucose 137 (58-89) H 10/15/16 05:53 Hemoglobin A1c 7.1 % (-5.6) H 10/14/16 05:46 Calcium 8.3 mg/dL (8.6-10.8) L 10/15/16 04:42 - VTE Documentation of Mechanical Device: Venous foot pump, device Consult Discharge Plan - Plan Referrals: Anum Roland CNP [Partnered Physician] - 11/12/16 1:00 pm Elier Wan MD [Partnered Physician] - 10/16/16 9:30 am Tracy Castillo CNP [Advanced Practice Nurse] - 01/28/17 10:30 am Zbigniew Ramirez MD [Primary Care Provider] -
[2016-10-15] MEDS: Finasteride 5 MG TABLET PO SCH (21:44)
[2016-10-15] MEDS: amLODIPine 5 MG TABLET PO SCH (21:44)
[2016-10-16] MEDS: Insulin LISPRO 300 UNITS/3 ML VIAL SQ SCH ×4 (00:57→18:10)
[2016-10-16 03:20] LABS: Basophils % 0.1 %; Eosinophils # 0.2 K/mcL (0.0-0.6); Eosinophils % 2.2 %; Hematocrit 30.9 % (37.5-50.1); Hemoglobin 10.4 g/dL (12.9-16.9); Immature Granulocytes % 0.6 % (0-4); Lymphocytes # 0.9 K/mcL (0.6-4.6); Lymphocytes % 11.4 %; Mean Corpuscular HGB Conc 33.7 g/dL (31.6-35.5); Mean Corpuscular Hemoglobin 29.8 pg (28.0-33.3); Mean Corpuscular Volume 88.5 fL (83.0-100.0); Mean Platelet Volume 10.5 fL (9.4-12.4); Monocytes # 0.7 K/mcL (0.0-1.3); Monocytes % 8.6 %; Neutrophils # 6.3 K/mcL (1.6-8.9); Platelet Count 142 K/mcL (140-400); Red Blood Count 3.49 M/mcL (4.19-5.50); Red Cell Distribution Width 13.3 % (11.5-14.5); Segmented Neutrophils % 77.1 %
[2016-10-16] MEDS: *HR* Enoxaparin 30 MG/0.3 ML SYRINGE SQ SCH ×2 (06:18→18:11)
[2016-10-16] MEDS: Multivit/Ca/Min/Fe/FA 1 TAB TABLET PO SCH (08:31)
[2016-10-16] MEDS: Famotidine 20 MG TABLET PO SCH (08:31)
[2016-10-16] MEDS: Furosemide 40 MG TABLET PO SCH (08:31)
[2016-10-16] MEDS: Aspirin 81 MG TAB.CHEW PO SCH (08:31)
[2016-10-16] MEDS: cloNIDine HCl 0.1 MG TABLET PO SCH ×2 (08:31→20:31)
[2016-10-16] MEDS: *HR* HYDROcodone/Acet 5/325 mg TABLET PO PRN ×2 (12:10→20:30)
--- NOTE | 2016-10-16 12:23 | Orthopedics Progress Note ---
Date of Encounter: 10/16/16 Time of Encounter: 12:00 - Assessment and Plan (1) Closed left hip fracture Current Visit: Yes Status: Acute POD#2 s/p Left hip IM nailing Dressings to be changed today. Use incentive spirometer now. Continue with therapy. WBAT. Continue pain control and DVT prophylaxis per hospitalist. Will follow up in [facility] office with Isabelle Goldstein PA-C on 10/29/16 at 9:30am. Qualifiers: Encounter type: initial encounter Qualified Code(s): S72.002A - Fracture of unspecified part of neck of left femur, initial encounter for closed fracture Subjective Principal diagnosis: POD#2 s/p left hip IM nailing Interval history: Patient doing well with no events overnight. Therapy currently working with patient to get him out of bed. He was up walking down the [place] yesterday. States the incision site is tender. Objective Vital signs: Vital Signs Temp Pulse Resp BP Pulse Ox 10/16/16 11:05 98.4 F 77 20 127/54 100 10/16/16 06:44 98.3 F 74 18 151/76 100 10/16/16 00:49 98.2 F 67 14 133/57 99 10/15/16 15:57 98.3 F 84 18 146/74 96 10/15/16 14:55 71 16 115/68 100 Intake and Output 10/15/16 10/16/16 10/16/16 23:59 07:59 15:59 Intake Total 450 / 450 375 / 375 Output Total 350 / 350 385 / 385 Balance 100 / 100 -10 / -10 Intake: Oral 450 / 450 375 / 375 Output: Urine 350 / 350 385 / 385 Other: Meal Dinner Percent of Meal Consumed 90% Blood Glucose* 154 173 168 Incision: clean and dry (dressings c/d/i with no surrounding erythema and no visible drainage on dressings. No calf tenderness. NV intact) - Labs CBC & BMP: 10/16/16 02:57 10/15/16 04:42 Labs: Abnormal lab results RBC 3.49 M/mcL (4.19-5.50) L 10/16/16 02:57 Hgb 10.4 g/dL (12.9-16.9) L 10/16/16 02:57 Hct 30.9 % (37.5-50.1) L 10/16/16 02:57 Potassium 4.8 mEq/L (3.5-4.5) H 10/15/16 04:42 Glucose 192 mg/dL (70-99) H 10/15/16 04:42 POC Glucose 171 (58-89) H 10/16/16 00:51 Hemoglobin A1c 7.1 % (-5.6) H 10/14/16 05:46 Calcium 8.3 mg/dL (8.6-10.8) L 10/15/16 04:42 - VTE Documentation of Mechanical Device: Venous foot pump, device Consult Discharge Plan - Plan Referrals: Anum Roland CNP [Partnered Physician] - 11/12/16 1:00 pm Elier Wan MD [Partnered Physician] - 10/16/16 9:30 am Tracy Castillo CNP [Advanced Practice Nurse] - 01/28/17 10:30 am Zbigniew Ramirez MD [Primary Care Provider] -
[2016-10-16] MEDS: Sennosides/Docusate Sodium TABLET PO SCH ×2 (13:08→20:32)
--- NOTE | 2016-10-16 16:48 | Internal Med Progress Note ---
Date of Encounter: 10/16/16 Time of Encounter: 14:30 - Assessment and plan (1) Closed left hip fracture Current Visit: Yes Status: Acute Assessment and plan: Left hip fracture secondary to mechanical fall. Orthopedic surgery consulted, patient underwent left hip intramedullary nailing, postoperative day 2. Doing well. Local wound and postoperative care according to orthopedics. Continue pain control with when necessary oral Percocet and IV morphine. DVT prophylaxis with Lovenox. Physical therapy evaluation recommends placement in extended care facility; social work associate consulted, working on the same. Supportive care. Qualifiers: Encounter type: initial encounter Qualified Code(s): S72.002A - Fracture of unspecified part of neck of left femur, initial encounter for closed fracture (2) Hypertension Current Visit: Yes Status: Chronic Assessment and plan: Blood pressure noted to be better controlled. Continue home medications. Qualifiers: Hypertension type: essential hypertension Qualified Code(s): I10 - Essential (primary) hypertension (3) CAD (coronary artery disease) Current Visit: Yes Status: Chronic Qualifiers: Coronary Disease-Associated Artery/Lesion type: [place] artery [place] vs. transplanted heart: [place] heart Associated angina: without angina Qualified Code(s): I25.10 - Atherosclerotic heart disease of [place] coronary artery without angina pectoris (4) Type 2 diabetes mellitus Current Visit: Yes Status: Chronic Assessment and plan: Hemoglobin A1c noted to be 7.1%. Treatment naive. Continue Accu-Chek blood glucose monitoring with sliding scale insulin as needed. Blood sugars noted to be better controlled today. Diabetic diet. Qualifiers: Diabetes mellitus complication status: without complication Diabetes mellitus halfway insulin use: without long term care social worker use Qualified Code(s): E11.9 - Type 2 diabetes mellitus without complications - Subjective Interval history: Improving left hip pain. Able to participate with physical therapy. Denies chest pain or shortness of breath. Tolerates oral diet. - Constitutional Vitals: Temp Pulse Resp BP Pulse Ox 97.5 F L 71 20 153/78 99 10/16/16 15:52 10/16/16 15:52 10/16/16 15:52 10/16/16 15:52 10/16/16 15:52 General appearance: Present: A&O X 2, answers questions appropriately - Respiratory Respiratory exam: Present: CTAB. Absent: accessory muscle use, rales, rhonchi, wheezes - Cardiovascular Cardiovascular exam: Present: RRR, +S1, +S2. Absent: diastolic murmur, gallop, rubs, systolic murmur - GI/Abdominal GI/Abdominal exam: Present: normal bowel sounds, soft, no peritoneal signs. Absent: distended, tenderness Internal Medicine: Result - Labs CBC & Chem 7: 10/16/16 02:57 10/15/16 04:42 Labs: Short CBC 10/16/16 Range/Units 02:57 WBC 8.2 (4.3-11.1) K/mcL Hgb 10.4 L (12.9-16.9) g/dL Hct 30.9 L (37.5-50.1) % Plt Count 142 (140-400) K/mcL Neutrophils # 6.3 (1.6-8.9) K/mcL - VTE Documentation of Mechanical Device: Venous foot pump, device Consult Discharge Plan - Plan Referrals: Anum Roland CNP [Partnered Physician] - 11/12/16 1:00 pm Elier Wan MD [Partnered Physician] - 10/16/16 9:30 am Tracy Castillo CNP [Advanced Practice Nurse] - 01/28/17 10:30 am Zbigniew Ramirez MD [Primary Care Provider] -
[2016-10-16] MEDS ORDERED: FOSAMAX 70 MG PO SCH (17:13)
[2016-10-16] MEDS: Finasteride 5 MG TABLET PO SCH (20:30)
[2016-10-16] MEDS: amLODIPine 5 MG TABLET PO SCH (20:31)
[2016-10-17] MEDS: Insulin LISPRO 300 UNITS/3 ML VIAL SQ SCH ×5 (00:35→23:58)
[2016-10-17] MEDS: *HR* Enoxaparin 30 MG/0.3 ML SYRINGE SQ SCH ×2 (05:57→18:17)
[2016-10-17] MEDS: Famotidine 20 MG TABLET PO SCH (08:19)
[2016-10-17] MEDS: Furosemide 40 MG TABLET PO SCH (08:19)
[2016-10-17] MEDS: Sennosides/Docusate Sodium TABLET PO SCH ×2 (08:19→20:49)
[2016-10-17] MEDS: Multivit/Ca/Min/Fe/FA 1 TAB TABLET PO SCH (08:20)
[2016-10-17] MEDS: cloNIDine HCl 0.1 MG TABLET PO SCH ×2 (08:20→20:49)
[2016-10-17] MEDS: Aspirin 81 MG TAB.CHEW PO SCH (08:20)
[2016-10-17] MEDS: *HR* HYDROcodone/Acet 5/325 mg TABLET PO PRN ×2 (14:10→20:41)
--- NOTE | 2016-10-17 16:54 | Internal Med Progress Note ---
Date of Encounter: 10/17/16 Time of Encounter: 14:10 - Assessment and plan (1) Closed left hip fracture Current Visit: Yes Status: Acute Assessment and plan: Left hip fracture secondary to mechanical fall. Orthopedic surgery consulted, patient underwent left hip intramedullary nailing, postoperative day 3. Doing well. Local wound and postoperative care according to orthopedics. Continue pain control with when necessary oral Percocet. DVT prophylaxis with Lovenox. Physical therapy evaluation recommends placement in extended care facility; social service technician consulted, awaiting insurance prior authorization for placement. Supportive care. Qualifiers: Encounter type: initial encounter Qualified Code(s): S72.002A - Fracture of unspecified part of neck of left femur, initial encounter for closed fracture (2) Hypertension Current Visit: Yes Status: Chronic Assessment and plan: Blood pressure noted to be better controlled. Continue home medications. Qualifiers: Hypertension type: essential hypertension Qualified Code(s): I10 - Essential (primary) hypertension (3) CAD (coronary artery disease) Current Visit: Yes Status: Chronic Qualifiers: Coronary Disease-Associated Artery/Lesion type: [place] artery [place] vs. transplanted heart: [place] heart Associated angina: without angina Qualified Code(s): I25.10 - Atherosclerotic heart disease of [place] coronary artery without angina pectoris (4) Type 2 diabetes mellitus Current Visit: Yes Status: Chronic Assessment and plan: Hemoglobin A1c noted to be 7.1%. Treatment naive. Continue Accu-Chek blood glucose monitoring with sliding scale insulin as needed. Blood sugars noted to be better controlled today. Diabetic diet. Qualifiers: Diabetes mellitus complication status: without complication Diabetes mellitus longterm insulin use: without emt intermediate use Qualified Code(s): E11.9 - Type 2 diabetes mellitus without complications - Subjective Interval history: No new complaints, resting comfortably in bed. Improving left hip pain. No nausea, vomiting. Awaiting placement. - Constitutional Vitals: Temp Pulse Resp BP Pulse Ox 97.9 F 74 14 117/67 100 10/17/16 14:50 10/17/16 14:50 10/17/16 14:50 10/17/16 14:50 10/17/16 14:50 General appearance: Present: A&O X 2, answers questions appropriately - Respiratory Respiratory exam: Present: CTAB. Absent: accessory muscle use, rales, rhonchi, wheezes - Cardiovascular Cardiovascular exam: Present: RRR, +S1, +S2. Absent: diastolic murmur, gallop, rubs, systolic murmur - GI/Abdominal GI/Abdominal exam: Present: normal bowel sounds, soft, no peritoneal signs. Absent: distended, tenderness Internal Medicine: Result - Labs CBC & Chem 7: 10/16/16 02:57 10/15/16 04:42 - Impressions Impressions Fluoroscopy 10/14/16 16:58 IMPRESSION: Intraprocedural fluoroscopic spot images as above. See separate procedure report for more information. D/ / 10/17/2016 10:45:52 Jade Abel MD / [email or web address] Interpreting Provider: Jade Abel MD - VTE Documentation of Mechanical Device: Venous foot pump, device Consult Discharge Plan - Plan Referrals: Anum Roland CNP [Partnered Physician] - 11/12/16 1:00 pm Elier Wan MD [Partnered Physician] - 10/16/16 9:30 am Tracy Castillo CNP [Advanced Practice Nurse] - 01/28/17 10:30 am Zbigniew Ramirez MD [Primary Care Provider] -
--- NOTE | 2016-10-17 17:11 | Orthopedics Progress Note ---
Date of Encounter: 10/17/16 Time of Encounter: 12:15 - Assessment and Plan (1) Closed left hip fracture Current Visit: Yes Status: Acute POD#3 s/p Left hip IM nailing Use incentive spirometer. Continue with therapy. WBAT. Continue pain control and DVT prophylaxis per hospitalist. Still awaiting insurance approval for ECF placement. Will follow up in [facility] office with Isabelle Goldstein PA-C on 10/29/16 at 9:30am. Qualifiers: Encounter type: initial encounter Qualified Code(s): S72.002A - Fracture of unspecified part of neck of left femur, initial encounter for closed fracture Subjective Principal diagnosis: POD#3 s/p left hip IM nailing Interval history: Patient doing well with no events overnight. Patient agreeable to doing therapy now. Pain tolerable right now. Objective Vital signs: Vital Signs Temp Pulse Resp BP Pulse Ox 10/17/16 14:50 97.9 F 74 14 117/67 100 10/17/16 11:47 98.0 F 70 18 143/70 100 10/17/16 09:42 95 10/17/16 06:36 97.9 F 87 16 154/73 95 10/17/16 04:26 97.7 F 82 16 160/67 98 10/17/16 00:23 98.1 F 72 17 127/70 99 10/16/16 20:34 98.2 F 78 15 174/74 94 Intake and Output 10/17/16 10/17/16 10/17/16 07:59 15:59 23:59 Intake Total 350 / 350 Output Total 300 / 300 Balance 50 / 50 Intake: Oral 350 / 350 Output: Urine 300 / 300 Other: Meal Breakfast Percent of Meal Consumed 50% Stool Size Small Stool Color Brown # Voids 2 Blood Glucose* 162 197 Incision: clean and dry (dressings c/d/i with no surrounding erythema, no calf pain) - Labs CBC & BMP: 10/16/16 02:57 10/15/16 04:42 Labs: Abnormal lab results RBC 3.49 M/mcL (4.19-5.50) L 10/16/16 02:57 Hgb 10.4 g/dL (12.9-16.9) L 10/16/16 02:57 Hct 30.9 % (37.5-50.1) L 10/16/16 02:57 Potassium 4.8 mEq/L (3.5-4.5) H 10/15/16 04:42 Glucose 192 mg/dL (70-99) H 10/15/16 04:42 POC Glucose 197 (58-89) H 10/17/16 11:49 Hemoglobin A1c 7.1 % (-5.6) H 10/14/16 05:46 Calcium 8.3 mg/dL (8.6-10.8) L 10/15/16 04:42 - VTE Documentation of Mechanical Device: Venous foot pump, device Consult Discharge Plan - Plan Referrals: Anum Roland CNP [Partnered Physician] - 11/12/16 1:00 pm Elier Wan MD [Partnered Physician] - 10/16/16 9:30 am Tracy Castillo CNP [Advanced Practice Nurse] - 01/28/17 10:30 am Zbigniew Ramirez MD [Primary Care Provider] -
[2016-10-17] MEDS: amLODIPine 5 MG TABLET PO SCH (20:49)
[2016-10-17] MEDS: Finasteride 5 MG TABLET PO SCH (20:49)
[2016-10-17] MEDS: *HR* HYDROmorphone (PF) 1 MG/ML SYRINGE IVP PRN (22:57)
[2016-10-18 05:31] LABS: Basophils % 0.3 %; Eosinophils # 0.2 K/mcL (0.0-0.6); Eosinophils % 3.2 %; Hematocrit 28.7 % (37.5-50.1); Hemoglobin 9.3 g/dL (12.9-16.9); Immature Granulocytes % 0.6 % (0-4); Lymphocytes % 16.3 %; Mean Corpuscular HGB Conc 32.4 g/dL (31.6-35.5); Mean Corpuscular Hemoglobin 29.2 pg (28.0-33.3); Mean Platelet Volume 10.6 fL (9.4-12.4); Monocytes # 0.5 K/mcL (0.0-1.3); Monocytes % 8.3 %; Neutrophils # 4.5 K/mcL (1.6-8.9); Platelet Count 156 K/mcL (140-400); Red Blood Count 3.19 M/mcL (4.19-5.50); Red Cell Distribution Width 13.6 % (11.5-14.5); Segmented Neutrophils % 71.3 %
[2016-10-18] MEDS: *HR* Enoxaparin 30 MG/0.3 ML SYRINGE SQ SCH ×2 (05:37→17:01)
[2016-10-18] MEDS: Insulin LISPRO 300 UNITS/3 ML VIAL SQ SCH ×4 (05:38→21:45)
[2016-10-18] MEDS: *HR* HYDROcodone/Acet 5/325 mg TABLET PO PRN ×2 (06:44→15:40)
[2016-10-18] MEDS: Furosemide 40 MG TABLET PO SCH (09:43)
[2016-10-18] MEDS: Famotidine 20 MG TABLET PO SCH (09:43)
[2016-10-18] MEDS: Sennosides/Docusate Sodium TABLET PO SCH ×2 (09:43→21:44)
[2016-10-18] MEDS: cloNIDine HCl 0.1 MG TABLET PO SCH ×2 (09:43→21:44)
[2016-10-18] MEDS: Multivit/Ca/Min/Fe/FA 1 TAB TABLET PO SCH (09:43)
[2016-10-18] MEDS: Aspirin 81 MG TAB.CHEW PO SCH (09:43)
[2016-10-18] MEDS: *HR* HYDROmorphone (PF) 1 MG/ML SYRINGE IVP PRN ×2 (10:31→20:18)
--- NOTE | 2016-10-18 12:24 | Internal Med Progress Note ---
Date of Encounter: 10/18/16 Time of Encounter: 12:23 - Assessment and plan (1) Closed left hip fracture Current Visit: Yes Status: Acute Assessment and plan: Left hip fracture secondary to mechanical fall. Orthopedic surgery consulted, patient underwent left hip intramedullary nailing, postoperative day 4. Doing well. Local wound and postoperative care according to orthopedics. Cleared for discharge from orthopedic standpoint with outpatient follow-up in 10 days. Continue pain control with when necessary oral Percocet and IV morphine. DVT prophylaxis with Lovenox. Physical therapy evaluation recommends placement in extended care facility; licensed social worker consulted, awaiting insurance prior authorization for placement. Supportive care. Qualifiers: Encounter type: initial encounter Qualified Code(s): S72.002A - Fracture of unspecified part of neck of left femur, initial encounter for closed fracture (2) Hypertension Current Visit: Yes Status: Chronic Assessment and plan: Blood pressure noted to be better controlled. Continue home medications. Qualifiers: Hypertension type: essential hypertension Qualified Code(s): I10 - Essential (primary) hypertension (3) CAD (coronary artery disease) Current Visit: Yes Status: Chronic Qualifiers: Coronary Disease-Associated Artery/Lesion type: [place] artery [place] vs. transplanted heart: [place] heart Associated angina: without angina Qualified Code(s): I25.10 - Atherosclerotic heart disease of [place] coronary artery without angina pectoris (4) Type 2 diabetes mellitus Current Visit: Yes Status: Chronic Assessment and plan: Hemoglobin A1c noted to be 7.1%. Treatment naive. Continue Accu-Chek blood glucose monitoring with sliding scale insulin as needed. Blood sugars noted to be better controlled today. Diabetic diet. Qualifiers: Diabetes mellitus complication status: without complication Diabetes mellitus shelter insulin use: without shelter use Qualified Code(s): E11.9 - Type 2 diabetes mellitus without complications - Subjective Interval history: No new complaints, resting comfortably in bed. Improving left hip pain. No nausea, vomiting. Awaiting placement. - Constitutional Vitals: Temp Pulse Resp BP Pulse Ox 97.6 F 64 18 143/65 98 10/18/16 12:01 10/18/16 12:01 10/18/16 12:01 10/18/16 12:01 10/18/16 12:01 General appearance: Present: A&O X 2 (somnolent due to pain meds), answers questions appropriately - Respiratory Respiratory exam: Present: CTAB (anterolaterally). Absent: accessory muscle use , rales, rhonchi, wheezes - Cardiovascular Cardiovascular exam: Present: RRR, +S1, +S2. Absent: diastolic murmur, gallop, rubs, systolic murmur - GI/Abdominal GI/Abdominal exam: Present: normal bowel sounds, soft, no peritoneal signs. Absent: distended, tenderness Internal Medicine: Result - Labs CBC & Chem 7: 10/18/16 04:39 10/15/16 04:42 Labs: Short CBC 10/18/16 Range/Units 04:39 WBC 6.3 (4.3-11.1) K/mcL Hgb 9.3 L (12.9-16.9) g/dL Hct 28.7 L (37.5-50.1) % Plt Count 156 (140-400) K/mcL Neutrophils # 4.5 (1.6-8.9) K/mcL - Impressions Impressions Fluoroscopy 10/14/16 16:58 IMPRESSION: Intraprocedural fluoroscopic spot images as above. See separate procedure report for more information. D/ / 10/17/2016 10:45:52 Jade Abel MD / [email or web address] Interpreting Provider: Jade Abel MD - VTE Documentation of Mechanical Device: Venous foot pump, device Consult Discharge Plan - Plan Referrals: Anum Roland CNP [Partnered Physician] - 11/12/16 1:00 pm Elier Wan MD [Partnered Physician] - 10/16/16 9:30 am Tracy Castillo CNP [Advanced Practice Nurse] - 01/28/17 10:30 am Zbigniew Ramirez MD [Primary Care Provider] -
[2016-10-18] MEDS: Ipratropium/Albuterol Neb 3 ML IH SCH ×2 (17:05→21:52)
[2016-10-18] MEDS: Finasteride 5 MG TABLET PO SCH (21:44)
[2016-10-18] MEDS: amLODIPine 5 MG TABLET PO SCH (21:44)
[2016-10-19] MEDS: Ipratropium/Albuterol Neb 3 ML IH SCH ×4 (03:40→21:35)
[2016-10-19 04:28] LABS: Basophils % 0.1 %; Eosinophils # 0.2 K/mcL (0.0-0.6); Eosinophils % 2.3 %; Hematocrit 30.8 % (37.5-50.1); Immature Granulocytes % 0.6 % (0-4); Lymphocytes # 1.8 K/mcL (0.6-4.6); Lymphocytes % 22.7 %; Mean Corpuscular HGB Conc 32.5 g/dL (31.6-35.5); Mean Corpuscular Hemoglobin 29.2 pg (28.0-33.3); Mean Corpuscular Volume 90.1 fL (83.0-100.0); Mean Platelet Volume 10.3 fL (9.4-12.4); Monocytes # 0.6 K/mcL (0.0-1.3); Neutrophils # 5.2 K/mcL (1.6-8.9); Platelet Count 171 K/mcL (140-400); Red Blood Count 3.42 M/mcL (4.19-5.50); Red Cell Distribution Width 13.5 % (11.5-14.5); Segmented Neutrophils % 66.3 %
[2016-10-19] MEDS: *HR* Enoxaparin 30 MG/0.3 ML SYRINGE SQ SCH ×2 (05:36→17:14)
[2016-10-19] MEDS: Insulin LISPRO 300 UNITS/3 ML VIAL SQ SCH ×4 (08:24→20:39)
[2016-10-19] MEDS: Levofloxacin 500 MG/100 ML 500 MG/100 ML BAG IVPB SCH (08:24)
[2016-10-19] MEDS: cloNIDine HCl 0.1 MG TABLET PO SCH ×2 (08:25→20:35)
[2016-10-19] MEDS: Aspirin 81 MG TAB.CHEW PO SCH (08:25)
[2016-10-19] MEDS: Multivit/Ca/Min/Fe/FA 1 TAB TABLET PO SCH (08:25)
[2016-10-19] MEDS: Famotidine 20 MG TABLET PO SCH (08:25)
[2016-10-19] MEDS: Sennosides/Docusate Sodium TABLET PO SCH ×2 (08:25→20:35)
[2016-10-19] MEDS: Furosemide 40 MG TABLET PO SCH (08:25)
[2016-10-19] MEDS: *HR* HYDROcodone/Acet 5/325 mg TABLET PO PRN ×3 (10:42→23:08)
--- NOTE | 2016-10-19 15:37 | Internal Med Progress Note ---
Date of Encounter: 10/19/16 Time of Encounter: 14:00 - Assessment and plan (1) Pneumonia Current Visit: Yes Status: Suspected Assessment and plan: Patient is noted to have cough and hypoxia. Chest x-ray shows left lower lobe opacity, atelectasis versus infiltrates. Will start IV Levaquin. Continue supplemental oxygen and monitor closely. No fever or leukocytosis and patient does not appear sick or toxic. Incentive spirometry. Bronchodilators as needed. Qualifiers: Pneumonia type: due to unspecified organism Laterality: left Lung location: lower lobe of lung Qualified Code(s): J18.1 - Lobar pneumonia, unspecified organism (2) Closed left hip fracture Current Visit: Yes Status: Acute Assessment and plan: Left hip fracture secondary to mechanical fall. Orthopedic surgery consulted, patient underwent left hip intramedullary nailing, postoperative day 5. Doing well. Local wound and postoperative care according to orthopedics. Postoperative blood loss anemia noted to be improving currently. Cleared for discharge from orthopedic standpoint with outpatient follow-up in 10 days. Continue pain control with when necessary oral Percocet and IV morphine. DVT prophylaxis with Lovenox. Physical therapy evaluation recommends placement in extended care facility; addiction social worker consulted, awaiting insurance prior authorization for placement. Supportive care. Qualifiers: Encounter type: initial encounter Qualified Code(s): S72.002A - Fracture of unspecified part of neck of left femur, initial encounter for closed fracture (3) Hypertension Current Visit: Yes Status: Chronic Assessment and plan: Blood pressure noted to be better controlled. Continue home medications. Qualifiers: Hypertension type: essential hypertension Qualified Code(s): I10 - Essential (primary) hypertension (4) CAD (coronary artery disease) Current Visit: Yes Status: Chronic Qualifiers: Coronary Disease-Associated Artery/Lesion type: [place] artery [place] vs. transplanted heart: [place] heart Associated angina: without angina Qualified Code(s): I25.10 - Atherosclerotic heart disease of [place] coronary artery without angina pectoris (5) Type 2 diabetes mellitus Current Visit: Yes Status: Chronic Assessment and plan: Hemoglobin A1c noted to be 7.1%. Treatment naive. Continue Accu-Chek blood glucose monitoring with sliding scale insulin as needed. Blood sugars noted to elevated, will start basal insulin. Diabetic diet. Qualifiers: Diabetes mellitus complication status: without complication Diabetes mellitus terminal clerk insulin use: without terminal clerk use Qualified Code(s): E11.9 - Type 2 diabetes mellitus without complications - Subjective Interval history: Noted to be more awake and alert today. Very talkative. Wants to be discharged to rehabilitation tomorrow. Improving cough and left hip pain. Reports bowel movements. - Constitutional Vitals: Temp Pulse Resp BP Pulse Ox 98.6 F 79 16 129/62 93 10/19/16 15:07 10/19/16 15:07 10/19/16 15:07 10/19/16 15:07 10/19/16 15:07 General appearance: Present: A&O X 2, answers questions appropriately - Respiratory Respiratory exam: Present: rales (Left basal crackles). Absent: accessory muscle use, rhonchi, wheezes - Cardiovascular Cardiovascular exam: Present: RRR, +S1, +S2. Absent: diastolic murmur, gallop, rubs, systolic murmur - GI/Abdominal GI/Abdominal exam: Present: normal bowel sounds, soft, no peritoneal signs. Absent: distended, tenderness - Extremities Exam Extremities exam: Present: full ROM (Restricted at left hip. Postop incision healing well), warm, radial pulses palpable and symetrical. Absent: calf tenderness, cyanotic, pedal edema Internal Medicine: Result - Labs CBC & Chem 7: 10/19/16 04:09 10/15/16 04:42 Labs: Short CBC 10/19/16 Range/Units 04:09 WBC 7.8 (4.3-11.1) K/mcL Hgb 10.0 L (12.9-16.9) g/dL Hct 30.8 L (37.5-50.1) % Plt Count 171 (140-400) K/mcL Neutrophils # 5.2 (1.6-8.9) K/mcL - Impressions Impressions Chest X-Ray 10/18/16 15:59 IMPRESSION: 1. Low lung volumes limits evaluation. 2. Focal opacity in the left base may represent atelectasis or infection. 3. Mild vascular indistinctness may reflect sequelae of low lung volumes versus mild interstitial edema. D/ / 10/18/2016 17:11:55 Jade Abel MD / leigh Interpreting Provider: Jade Abel MD - VTE Documentation of Mechanical Device: Venous foot pump, device Consult Discharge Plan - Plan Referrals: Anum Roland CNP [Partnered Physician] - 11/12/16 1:00 pm Elier Wan MD [Partnered Physician] - 10/16/16 9:30 am Tracy Castillo CNP [Advanced Practice Nurse] - 01/28/17 10:30 am Zbigniew Ramirez MD [Primary Care Provider] -
[2016-10-19] MEDS: Finasteride 5 MG TABLET PO SCH (20:34)
[2016-10-19] MEDS: amLODIPine 5 MG TABLET PO SCH (20:35)
[2016-10-19] MEDS: Insulin DETEMIR 100 UNIT/ML X5UNITS SQ SCH (20:40)
[2016-10-20] MEDS: Ipratropium/Albuterol Neb 3 ML IH SCH ×2 (04:26→11:17)
[2016-10-20] MEDS: *HR* Enoxaparin 30 MG/0.3 ML SYRINGE SQ SCH (06:13)
[2016-10-20] MEDS: Insulin LISPRO 300 UNITS/3 ML VIAL SQ SCH ×2 (08:10→13:24)
[2016-10-20] MEDS: cloNIDine HCl 0.1 MG TABLET PO SCH (08:10)
[2016-10-20] MEDS: Aspirin 81 MG TAB.CHEW PO SCH (08:10)
[2016-10-20] MEDS: Famotidine 20 MG TABLET PO SCH (08:10)
[2016-10-20] MEDS: Furosemide 40 MG TABLET PO SCH (08:10)
[2016-10-20] MEDS: Sennosides/Docusate Sodium TABLET PO SCH (08:10)
[2016-10-20] MEDS: Levofloxacin 500 MG/100 ML 500 MG/100 ML BAG IVPB SCH (08:10)
[2016-10-20] MEDS: Multivit/Ca/Min/Fe/FA 1 TAB TABLET PO SCH (08:10)
[2016-10-20] MEDS: Insulin DETEMIR 100 UNIT/ML X5UNITS SQ SCH (08:12)
[2016-10-20 10:48] VITALS: BP 146/68
--- NOTE | 2016-10-20 12:35 | Discharge Summary ---
Date of Encounter: 10/20/16 Time of Encounter: 12:31 - Discharge Diagnosis (1) Pneumonia Priority: Primary Status: Suspected Qualifiers: Pneumonia type: due to unspecified organism Laterality: left Lung location: lower lobe of lung Qualified Code(s): J18.1 - Lobar pneumonia, unspecified organism (2) Closed left hip fracture Priority: Primary Status: Acute Qualifiers: Encounter type: initial encounter Qualified Code(s): S72.002A - Fracture of unspecified part of neck of left femur, initial encounter for closed fracture (3) Hypertension Priority: Secondary Status: Chronic Qualifiers: Hypertension type: essential hypertension Qualified Code(s): I10 - Essential (primary) hypertension (4) CAD (coronary artery disease) Priority: Secondary Status: Chronic Qualifiers: Coronary Disease-Associated Artery/Lesion type: [place] artery [place] vs. transplanted heart: [place] heart Associated angina: without angina Qualified Code(s): I25.10 - Atherosclerotic heart disease of [place] coronary artery without angina pectoris (5) Type 2 diabetes mellitus Priority: Secondary Status: Chronic Qualifiers: Diabetes mellitus complication status: without complication Diabetes mellitus longterm insulin use: without longterm use Qualified Code(s): E11.9 - Type 2 diabetes mellitus without complications - Discharge Medications Prescriptions: HYDROcodone/Acet 5/325 mg [[place] 5-325 mg] 1 tab PO Q6HR PRN #20 tablet PRN Reason: Pain Furosemide [Lasix] 20 mg PO HS #30 tablet Insulin DETEMIR [Levemir] 10 unit SQ BID 30 Days Levofloxacin [Levaquin] 500 mg PO DAILY #5 tablet Sennosides/Docusate Sodium [Senna Plus] 1 each PO BID #30 tablet Home Medications: Alendronate Sodium [Fosamax] 70 mg PO TH 10/14/16 [History] Amlodipine [Norvasc] 5 mg PO HS 10/14/16 [History] Aspirin 81 mg PO DAILY 10/14/16 [History] Atorvastatin [Lipitor] 10 mg PO HS 10/14/16 [History] Cinnamon Bark [Cinnamon] 1,000 mg PO DAILY 10/14/16 [History] CloNIDine HCl 0.1 mg PO BID 10/14/16 [History] Docusate Sodium [Dok] 250 mg PO DAILY PRN 10/14/16 [History] Finasteride [Proscar] 5 mg PO HS 10/14/16 [History] Furosemide [Lasix] 40 mg PO DAILY 10/14/16 [History] Mv-Mn/FA/Vit K/Lycop/Lut/Coq10 [Daily Multivitamin Capsule] 1 each PO DAILY 08/01 [History] Polyethylene Glycol 3350 [MiraLAX bowel prep] 17 gm PO DAILY 10/14/16 [History] Ranitidine HCl [Zantac 75] 75 mg PO QAM 10/14/16 [History] Sertraline [Zoloft] 12.5 mg PO HS 10/14/16 [History] Furosemide [Lasix] 20 mg PO HS #30 tablet 10/20/16 [Rx] HYDROcodone/Acet 5/325 mg [[place] 5-325 mg] 1 tab PO Q6HR PRN #20 tablet [Rx] Insulin DETEMIR [Levemir] 10 unit SQ BID 30 Days 10/20/16 [Rx] Insulin LISPRO [HumaLOG] 0 units SQ HS vial 10/20/16 [Rx] Insulin LISPRO [HumaLOG] 0 units SQ TIDAC vial 10/20/16 [Rx] Levofloxacin [Levaquin] 500 mg PO DAILY #5 tablet 10/20/16 [Rx] Sennosides/Docusate Sodium [Senna Plus] 1 each PO BID #30 tablet 10/20/16 [Rx] Allergies/Adverse Reactions: Allergies Penicillins Allergy (Verified 10/14/16 09:47) Itching pregabalin [From Lyrica] Allergy (Verified 10/14/16 09:47) Swelling of Lip/Tongue/Throat Date of admission: 10/13/16 22:39 Primary care physician: Chriss Nina Consults: 10/13/16 22:51 Consult to Orthopedic Surgery [CONS] Routine Consulting Provider: Orthopedic and Sports Medicine Reason for Consult: 86M with left hip fracture Call Completed: Yes 10/14/16 01:26 Consult to Cured Meats Supervisor [CONS] Routine Comment: 10/15/16 09:16 Consult to Occupational Therapy [CONS] Routine Comment: Evaluate, develop and implement POC Reason for Consult: post hip surgery Consult to Orthopedic Navigator [CONS] [CONS] Routine Consult to Physical Therapy [CONS] Routine Comment: Evaluate, develop and implement POC Reason for Consult: post hip surgery Consult to Division Order Technician [CONS] Routine Reason for SW Consult: post -op hip fracture RT Post Op Consult [CONS] Routine Discharging clinician: Valeria Baugh Anticipated date of discharge: 10/20/16 - Patient Status Disposition: Transfer SNF Condition: Fair Functional capacity at discharge: uses cane/walker Overall status at discharge: patient is progressing back to baseline - Discharge Instructions Follow Up With: Anum Roland CNP [Partnered Physician] - 11/12/16 1:00 pm Elier Wan MD [Partnered Physician] - 10/16/16 9:30 am Tracy Castillo CNP [Advanced Practice Nurse] - 01/28/17 10:30 am Zbigniew Ramirez MD [Primary Care Provider] - Additional Instructions: Discharge Instructions: Total Hip Replacement Please call [facility] ([phone]), your Primary Care Physician, or report to the Emergency Room if you have any of the following symptoms: Nausea, vomiting, fever greater that 101.5, swelling, chest pain, shortness of breath, increased pain/redness/drainage/odor for your incision site, numbness/ tingling, or any other concerning symptoms. ACTIVITY:Weight-bearing as tolerated for 8 weeks with hip dislocation precautions that physical therapy taught you. You may progress as tolerated under the guidance of your physical therapist. You do not need to sleep with a pillow between your legs. You can also seep on the operative side or on your stomach. MEDICATIONS: Upon discharge resume your home medications. Take all the medications as prescribed. Take a stool softener if taking narcotic pain medications. Stool softeners are only effective if you drink enough fluids. Drink 6-8 glass of water or fluids a day, unless this is not allowed for another health problem. Despite using stool softeners, if you haven't had a bowel movement in 3 days, please switch to a gentle laxative. Gentle laxatives are sold over the counter. You should have a bowel movement within 24 hours, if not call the office. You will be discharged from the hospital with a prescription for pain medication. You are encouraged to decrease the use of narcotic pain medication as tolerated. Should you require a refill, please call the office. [facility] prescribes narcotic pain medication for only 4-6 weeks after surgery. If you require pain medication beyond this time period, you may be referred to your Primary Care Physician or to the Pain Clinic for further evaluation. Plan ahead for refills on pain medication as many narcotics either need to be picked up at the office or mailed. It is best to call 48-72 hours in advance of needing a prescription refill so you don't run out of medication. To help control the post-operative pain, you may take NSAIDs (Aleve,Advil, Motrin, ibuprofen, naprosyn) or Tylenol as prescribed on the bottle in addition to the pain medication. ANTICOAGULATION (blood thinners): Continue your Aspirin, Lovenox or Coumadin as prescribed to help prevent a blood clot in the leg or in the lungs. As long as your incision remains dry and you tolerate the NSAIDs (Aleve, Advil, Motrin, Ibuprofen, Naprosyn), it is OK to use the NSAIDS while you are taking your anticoagulation medication. Should your incision start to drain, stop the NSAID and contact our office. Common symptoms of blood clot in the legs include: localized pain, swelling, calf tenderness, redness or discoloration of the skin. Blood clot in the lung symptoms include: shortness of breath, rapid pulse, sweating, and chest pain that worsens with deep breathing, coughing up blood, lightheadedness, feelings of anxiety. If you experience any of these symptoms notify your physician immediately, go to the emergency room, or if having trouble breathing, call 911. WOUND CARE: Leave the dressing on for 7 to 10days. You may change the dressing if it is saturated greater than 50%. Do not get the dressing wet at anytime. Wash your hands with antibacterial soap, rinse and dry prior to any wound care. If you have josh the visiting nurse or rehab facility can remove the stapes 10-14 days after surgery and place steri-strips across the wound. Leave the steri-strips in place until they fall off on their own. You may let water from the shower run on top of the steri-strips. If you do not have a visiting nurse or rehab facility, you will need to return to the office at 10-14 days for the josh to be removed. If you have itching or redness around the dressing call the office. FOLLOW-UP: Please follow up with your surgeon in the orthopedic clinic in 6 weeks from the day of surgery. If you have josh that need to be removed, you will need to come back to the office in 10-14 days from the day of surgery. - Diet and Activity Activity: as per physical therapy, wear oxygen at all times Diet: diabetic diet, low fat, low cholesterol, low salt diet (fluid restriction to 1.2L/day) Hospital course: Mr. Johnson is a 86 year old male with the above medical problems, who was admitted with acute left hip pain after sustaining a mechanical fall. He was noted to have a closed left hip fracture and orthopedic surgery was consulted. Patient subsequently underwent intramedullary nailing of left hip and had an uneventful postoperative course. His wound is noted to be healing well and his pain is now better controlled with oral narcotics. Physical therapy evaluation was done and he is recommended placement in extended care facility for continued rehabilitation. He did have mild blood loss anemia postoperatively, which is now improving. He is noted to have some hypoxia and cough while in the hospital and chest x- ray shows possible left lower lobe infiltrate and patient has been started on IV Levaquin with good improvement. Patient is medically stable today, vital signs stable, tolerates oral diet and is stable for transfer to half-way for continued rehabilitation. - Time Spent with Patient Total time spent providing and/or coordinating discharge services: Greater than 30 minutes (50 min) - Constitutional Vitals: Temp Pulse Resp BP Pulse Ox 97.8 F 86 18 146/68 98 10/20/16 10:45 10/20/16 10:45 10/20/16 11:17 10/20/16 10:45 10/20/16 11:17 General appearance: Present: A&O X 3, answers questions appropriately - Respiratory Respiratory exam: Present: CTAB, rales (left basal crackles+). Absent: accessory muscle use, rhonchi, wheezes - Cardiovascular Cardiovascular exam: Present: RRR, +S1, +S2. Absent: diastolic murmur, gallop, rubs, systolic murmur - Extremities Exam Extremities exam: Present: pedal edema (3+ pitting pedal edema, left>right), warm, radial pulses palpable and symetrical. Absent: calf tenderness, cyanotic - VTE Documentation of Mechanical Device: Venous foot pump, device
--- NOTE | 2016-10-20 12:38 | Physician Discharge Referral ---
ExtendedCare Referral Info Transfer To: [facility] Provider in Charge: Valeria Baugh Provider in Charge after Transfer: PCP Institutional Level of Care: Skilled - Diagnosis (1) Pneumonia Priority: Primary Status: Suspected (2) Closed left hip fracture Priority: Primary Status: Acute (3) Hypertension Priority: Secondary Status: Chronic (4) CAD (coronary artery disease) Priority: Secondary Status: Chronic (5) Type 2 diabetes mellitus Priority: Secondary Status: Chronic Expected Duration of Placement: 3 weeks Prognosis: Fair Aware of Diagnosis: Patient, Family Aware of Prognosis: Patient, Family - Transfer Medications Prescriptions: HYDROcodone/Acet 5/325 mg [[place] 5-325 mg] 1 tab PO Q6HR PRN #20 tablet PRN Reason: Pain Furosemide [Lasix] 20 mg PO HS #30 tablet Insulin DETEMIR [Levemir] 10 unit SQ BID 30 Days Levofloxacin [Levaquin] 500 mg PO DAILY #5 tablet Sennosides/Docusate Sodium [Senna Plus] 1 each PO BID #30 tablet Home Medications: Alendronate Sodium [Fosamax] 70 mg PO TH 10/14/16 [History] Amlodipine [Norvasc] 5 mg PO HS 10/14/16 [History] Aspirin 81 mg PO DAILY 10/14/16 [History] Atorvastatin [Lipitor] 10 mg PO HS 10/14/16 [History] Cinnamon Bark [Cinnamon] 1,000 mg PO DAILY 10/14/16 [History] CloNIDine HCl 0.1 mg PO BID 10/14/16 [History] Docusate Sodium [Dok] 250 mg PO DAILY PRN 10/14/16 [History] Finasteride [Proscar] 5 mg PO HS 10/14/16 [History] Furosemide [Lasix] 40 mg PO DAILY 10/14/16 [History] Mv-Mn/FA/Vit K/Lycop/Lut/Coq10 [Daily Multivitamin Capsule] 1 each PO DAILY 08/01 [History] Polyethylene Glycol 3350 [MiraLAX bowel prep] 17 gm PO DAILY 10/14/16 [History] Ranitidine HCl [Zantac 75] 75 mg PO QAM 10/14/16 [History] Sertraline [Zoloft] 12.5 mg PO HS 10/14/16 [History] Furosemide [Lasix] 20 mg PO HS #30 tablet 10/20/16 [Rx] HYDROcodone/Acet 5/325 mg [[place] 5-325 mg] 1 tab PO Q6HR PRN #20 tablet [Rx] Insulin DETEMIR [Levemir] 10 unit SQ BID 30 Days 10/20/16 [Rx] Insulin LISPRO [HumaLOG] 0 units SQ HS vial 10/20/16 [Rx] Insulin LISPRO [HumaLOG] 0 units SQ TIDAC vial 10/20/16 [Rx] Levofloxacin [Levaquin] 500 mg PO DAILY #5 tablet 10/20/16 [Rx] Sennosides/Docusate Sodium [Senna Plus] 1 each PO BID #30 tablet 10/20/16 [Rx] Allergies/Adverse Reactions: Allergies Penicillins Allergy (Verified 10/14/16 09:47) Itching pregabalin [From Lyrica] Allergy (Verified 10/14/16 09:47) Swelling of Lip/Tongue/Throat - Respiratory Orders Oxygen / L per min (2L/min via [place]) Smoking Cessation: Smoking cessation has been advised. For more information, call the [place] Tobacco Quit Line at 5-104-XEMA-NOW. - Advance Directives Code Status: Full Code - Mobility Orders Ambulate - Rehabiliation Orders Rehab Potential: Fair Rehab Orders: ROM Exercises, Evaluation for Physical Therapy, Evaluation for Occupational Therapy - Diet Orders No Added Salt (JOSE), No Concentrated Sweets (diabetic), Cardiac (fluid restriction to 1.2L/day) CERTIFICATION: I certify that the transfer of the above named patient to an Extended Care Facility is necessary for the continuing treatment of the diagnosis listed. The above information is true and accurate reflection of patient's current condition. Confidential - Redisclosure prohibited without a patient's written consent.
== END 2016-10-20 14:22 | DRG 480 ==
LOC: 3NENU → SUATTDRO 22:39
PROVIDERS: ADMIT Internal Medicine; ATTEND Internal Medicine